=== PATIENT | male | born 1995 | race Hispanic/Latino ===

== ENCOUNTER 2022-06-01 09:18 | Emergency (ER) | payer OTHER ==
[2022-06-01] MEDS ORDERED: Lidocaine 1% (PF) 30 ML VIAL ONE (09:27)
[2022-06-01] MEDS ORDERED: Amoxicillin/Potassium Clav 875 MG TAB ONE ×2 (10:44→10:48)
[2022-06-01] MEDS ORDERED: HYDROcodone/Acetaminophen 5/325 mg Tablet ONE (10:45)
== END 2022-06-01 11:05 | disposition home or self-care (01) ==
LOC: NAV ERS 09:18
DX: S62.636B Displaced fracture of distal phalanx of right little finger, initial encounter for open fracture (principal); F17.210 Nicotine dependence, cigarettes, uncomplicated; X58.XXXA Exposure to other specified factors, initial encounter
CPT/HCPCS: 12002; J2001